=== PATIENT | male | born 1970 | race Caucasian/White ===

== ENCOUNTER 2016-09-18 17:19 | Emergency (ER) | payer OTHER ==
[~2016-09-18] VITALS: Ht 180.3 cm; Wt 101.2 kg
[~2016-09-18 17:19] MED LIST: HYDR-2678 PO; ONDA4TAB7 PO; TAMS0.4C97 PO
--- NOTE | 2016-09-18 17:32 | ED.ADGEN ---
Past History Past Medical History: Schizophrenia Past Surgical History: No Surgical History Smoking: Cigarettes Alcohol Use: None Drug Use: None, Marijuana Adult General Chief Complaint Chief Complaint The other day I was sitting on the couch .. smoking and got a real bad coughing spasm and I felt something tear mild left lower rib area,, it still hurts.. it has been two days.. now.. every time I cough it hurts or I move the wrong way it hurt... right here on the Lt.'.." HPI HPI Patient is a 45 year old male who presents with above hx and complaints of sharp clicking pain left lower rib cage mid axillary and mid clavicular line at approximately T7. Patient has point tenderness at this spot. Deep breaths and cough reproduce it. Palpation of site reproduces pain. Patient denies any other trauma. Patient does smoke tobacco and marijuana. Patient denies any immunosuppression. Patient does have a history of schizophrenia. Patient states injury occurred approximately 2 days ago. Patient denies any history of productive sputum, or fever. Patient has been told he has chronic bronchitis or COPD in the past. Patient denies immunosuppression, travel or specific ill contacts. Patient normally follows with Dr. Tijerina. Review of Systems Review of Systems Constitutional: Denies fever or chills [] Eyes: Denies change in visual acuity, redness, or eye pain [] HENT: Denies nasal congestion or sore throat [] Respiratory: History of nonproductive cough and left chest wall tenderness Cardiovascular: No additional information not addressed in HPI [] GI: Denies abdominal pain, nausea, vomiting, bloody stools or diarrhea [] : Denies dysuria or hematuria [] Musculoskeletal: Denies back pain or joint pain [] Integument: Denies rash or skin lesions [] Neurologic: Denies headache, focal weakness or sensory changes [] Endocrine: Denies polyuria or polydipsia [] Family History Family History Noncontributory Current Medications Current Medications Current Medications Medications (Trade) Dose Ordered Sig/Alexander Start Time Stop Time Status Last Admin Dose Admin Hydrocodone Bitartrate/ Ibuprofen (Vicoprofen 7.5-200) 2 tab 1X ONCE 09/18/16 18:00 09/18/16 18:02 DC 09/18/16 18:00 2 TAB Allergies Allergies Allergies Coded Allergies Type Severity Reaction Last Updated Verified No Known Drug Allergies 01/25/16 No Physical Exam Physical Exam Constitutional: Mild to moderate distress, non-toxic appearance. Red hair. HENT: Normocephalic, atraumatic, bilateral external ears normal, oropharynx moist, no oral exudates, nose normal. [] Eyes: PERRLA, EOMI, conjunctiva normal, no discharge. [] Neck: Normal range of motion, no tenderness, supple, no stridor. [] Cardiovascular:Heart rate regular rhythm, no murmur [] Lungs & Thorax: Bilateral breath sounds equal at apexes with scattered wheezes on auscultation [] point chest wall tenderness as per history of present illness Abdomen: Bowel sounds normal, soft, no tenderness, no masses, no pulsatile masses. [] Skin: Warm, dry, no erythema, no rash. [] Tattoos Back: No tenderness, no CVA tenderness. [] Extremities: No tenderness, no cyanosis, no clubbing, ROM intact, no edema. [] Neurologic: Alert and oriented X 3, normal motor function, normal sensory function, no focal deficits noted. [] Psychologic: Affect anxious, judgement normal, mood normal. [] Current Patient Data Vital Signs Vital Signs Date Time Temp Pulse Resp B/P Pulse Ox O2 Delivery O2 Flow Rate FiO2 09/18/16 18:25 97.9 81 18 140/71 97 Room Air EKG EKG [] Radiology/Procedures Radiology/Procedures I interpretation chest x-ray shows chronic patchy changes. No large infiltrate. No finding of pneumonia thorax. [] Course & Med Decision Making Course & Med Decision Making Pertinent Labs and Imaging studies reviewed. (See chart for details) Must stop smoking. Ice packs when necessary. Do not binding site. Tylenol and ibuprofen for pain. Follow-up primary care. Return if any concerns. [] Final Impression Final Impression 1. Cartilage Tear 2. Chest Pain- chest wall 3. Tobacco and MJ abuse. [] Problems: Dragon Disclaimer Dragon Disclaimer This electronic medical record was generated, in whole or in part, using a voice recognition dictation system. ANTHONY MESA MD Sep 18, 2016 17:32
[2016-09-18] MEDS ORDERED: HYDROCODON/IBUPROFEN 7.5/200MG TABLET. PO ONE (18:00)
[2016-09-18 18:25] VITALS: BP 140/71
--- NOTE | 2016-09-19 08:13 | RAD ---
Chest, 2 views, 09/18/2016: History: Chest pain The heart size is normal. The pulmonary vascularity is within normal limits. No pulmonary infiltrate is seen. There is no evidence of pleural fluid. IMPRESSION: No acute cardiopulmonary abnormality is detected.
== END 2016-09-18 18:30 | disposition home or self-care (01) ==
LOC: ER 17:19
DX: S23.41XA Sprain of ribs, initial encounter (principal); R07.89 Other chest pain; F17.210 Nicotine dependence, cigarettes, uncomplicated; F12.10 Cannabis abuse, uncomplicated; F20.9 Schizophrenia, unspecified; X58.XXXA Exposure to other specified factors, initial encounter; Y93.9 Activity, unspecified; Y99.8 Other external cause status; Y92.89 Other specified places as the place of occurrence of the external cause
CPT/HCPCS: 71020; 99284

== ENCOUNTER → 2017-11-14 | Outpatient (CLI) | payer OTHER | END | disposition home or self-care (01) | LOC: LAB 14:31 | PROVIDERS: ATTEND Physician Assistant | DX: Z51.81 Encounter for therapeutic drug level monitoring (principal); Z79.899 Other long term (current) drug therapy | CPT/HCPCS: 36415; 84146 ==

== ENCOUNTER → 2018-04-10 | Outpatient (CLI) | payer OTHER ==
[2018-04-10 13:48] LABS: BASO # 0.1 x10^3/uL (0.0-0.2); BASO % 1 % (0-3); EOS # 0.2 x10^3/uL (0.0-0.7); EOS % 2 % (0-3); HEMATOCRIT 46.3 % (39.0-53.0); HEMOGLOBIN 15.9 g/dL (13.0-17.5); LYMPH # 3.3 x10^3/uL (1.0-4.8); LYMPH % 35 % (24-48); MEAN CORPUSCULAR HEMOGLOBIN 30 pg (25-35); MEAN CORPUSCULAR HGB CONC 34 g/dL (31-37); MEAN CORPUSCULAR VOLUME 88 fL (79-100); MONO # 0.6 x10^3/uL (0.0-1.1); MONO % 7 % (0-9); NEUT # 5.2 x10^3uL (1.8-7.7); NEUT % 55 % (31-73); PLATELET COUNT 284 x10^3/uL (140-400); RED BLOOD COUNT 5.28 x10^6/uL (4.30-5.70); RED CELL DISTRIBUTION WIDTH 13.3 % (11.5-14.5); WHITE BLOOD COUNT 9.4 x10^3/uL (4.0-11.0)
[2018-04-10 13:56] LABS: ALBUMIN 3.5 g/dL (3.4-5.0); ALBUMIN/GLOBULIN RATIO 0.8 (1.0-1.7); ALK PHOS 72 U/L (46-116); ALT (SGPT) 43 U/L (16-63); ANION GAP 7 (6-14); AST (SGOT) 25 U/L (15-37); BLOOD UREA NITROGEN 11 mg/dL (8-26); BUN/CREATININE RATIO 12 (6-20); CALCIUM 8.7 mg/dL (8.5-10.1); CARBON DIOXIDE 28 mmol/L (21-32); CHLORIDE 102 mmol/L (98-107); CREATININE 0.9 mg/dL (0.7-1.3); GFR 90.1; GLUCOSE 90 mg/dL (70-99); POTASSIUM 4.1 mmol/L (3.5-5.1); SODIUM 137 mmol/L (136-145); TOTAL BILIRUBIN 0.5 mg/dL (0.2-1.0); VAL ACID 56 mcg/mL (50-100)
[2018-04-11 13:03] LABS: FREE T4 1.03 ng/dL (0.76-1.46); THYROID STIM HORMONE (TSH) 2.95 uIU/mL (0.358-3.740)
== END | disposition home or self-care (01) ==
LOC: LAB 12:43
PROVIDERS: ATTEND Physician Assistant
DX: Z79.899 Other long term (current) drug therapy (principal)
CPT/HCPCS: 36415; 80053; 80061; 80164; 84439; 84443; 84480; 85025

== ENCOUNTER 2018-12-24 07:08 | Emergency (ER) | payer OTHER ==
[~2018-12-24] VITALS: Ht 180.3 cm; Wt 111.1 kg
[2018-12-24] MEDS ORDERED: IV NORMAL SALINE 1,000ML 1,000 ML IV SCH (07:21)
[2018-12-24] MEDS ORDERED: KETOROLAC 30 MG/ML VIAL. ONE (07:31)
[2018-12-24] MEDS ORDERED: ORPHENADRINE CITRATE 60 MG/2 ML VIAL. ONE (07:32)
--- NOTE | 2018-12-24 07:41 | PHYS DOC ---
Past History Past Medical History: High Cholesterol, Kidney Stones, Schizophrenia Past Surgical History: No Surgical History Smoking: Cigarettes Alcohol Use: None Drug Use: None, Marijuana Adult General Chief Complaint Chief Complaint: FLANK PAIN HPI HPI Patient is a 48-year-old male who presents with complaint of right flank pain. He states that pain started yesterday. He rates pain as moderate and states that pain is worsened when he stands up and walks. He states that when he sits down and leans forward, pain is relieved. He denies any nausea or vomiting. He states that at times is like a deep ache but at times, especially when he takes in a deep breath, pain can be like a sharp stab.[] Review of Systems Review of Systems Constitutional: Denies fever or chills [] Respiratory: Denies cough or shortness of breath [] Cardiovascular: No additional information not addressed in HPI [] GI: Denies abdominal pain, nausea, vomiting or diarrhea [] : Denies dysuria or hematuria [] Musculoskeletal: Complains of right-sided lower back pain [] Integument: Denies rash or skin lesions [] All other systems were reviewed and found to be within normal limits, except as documented in this note. Current Medications Current Medications Current Medications Medications (Trade) Dose Ordered Sig/Alexander Start Time Stop Time Status Last Admin Dose Admin Ketorolac Tromethamine (Toradol 30mg Vial) 30 mg 1X ONCE 12/24/18 07:30 12/24/18 07:31 UNV Orphenadrine Citrate (Norflex) 60 mg 1X ONCE 12/24/18 07:30 12/24/18 07:31 UNV Sodium Chloride 1,000 ml @ 1,000 mls/hr Q1H 12/24/18 07:21 12/24/18 08:20 UNV Allergies Allergies Allergies Coded Allergies Type Severity Reaction Last Updated Verified No Known Drug Allergies 01/25/16 No Physical Exam Physical Exam Constitutional: Well developed, well nourished, no acute distress, non-toxic appearance. [] HENT: Normocephalic, atraumatic, bilateral external ears normal, oropharynx moist, no oral exudates, nose normal. [] Eyes: PERRLA, EOMI, conjunctiva normal, no discharge. [] Neck: Normal range of motion, no tenderness, supple, no stridor. [] Cardiovascular:Heart rate regular rhythm, no murmur [] Lungs & Thorax: Bilateral breath sounds clear to auscultation [] Abdomen: Bowel sounds normal, soft, no tenderness. [] Skin: Warm, dry, no erythema, no rash. [] Back: There is mild tenderness to palpation with palpable spasm in the lower thoracic and upper lumbar paraspinal musculature on the right. [] Extremities: No tenderness, no cyanosis, no clubbing, ROM intact. [] Neurologic: Awake and alert, no focal deficits noted. [] EKG EKG [] Radiology/Procedures Radiology/Procedures [] Impressions: PROCEDURE: CT ABDOMEN PELVIS WO CONTRAST Examination: CT ABDOMEN PELVIS WO CONTRAST History: Right flank pain with onset 2 days ago. Comparison/Correlation: 01/25/2016 CT abdomen and pelvis without contrast Findings: Axial images of the abdomen and pelvis were obtained without contrast. Visualized lung bases are clear. Marked, diffuse fatty infiltration of the liver is present. Gallbladder is somewhat high density of the dependent aspect of the abdomen expected of sludge. Spleen, pancreas, and adrenal glands are normal. Appendix is normal. No bowel obstruction. No inflammatory change about cecum. Right renal lower pole nonobstructive 0.3 cm diameter calyceal calculus is present left renal lower pole nonobstructive calyceal calculus measuring 0.75 cm diameter is present. No hydronephrosis. No right hydroureter. No radiopaque ureteral calculi. Slight distention of the distal left ureter is present and mildly decreased compared to the prior exam. No radiopaque calculus at this site however. There is a calculus within the urinary bladder measuring up to 0.77 cm diameter. Bladder is mostly decompressed which may account for the circumferential wall thickening present. No gross surrounding stranding. No acute bony process. Left inguinal hernia contains omental fat. No enlarged abdominal or pelvic lymph nodes. No ascites or pelvic free fluid. Prostate gland is mildly enlarged measuring up to 4.4 cm diameter transversely. Impression: Urinary bladder 0.77 cm diameter calculus is present. Nonobstructive left renal calculus. Nonobstructive right renal calculus. Appendix is normal. Marked fatty infiltration of the liver. Mild prostatomegaly. PQRS Compliance Statement: One or more of the following individualized dose reduction techniques were utilized for this examination: 1. Automated exposure control 2. Adjustment of the mA and/or kV according to patient size 3. Use of iterative reconstruction technique Electronically signed by: Nba Tobin MD (12/24/2018 7:57 AM) [facility] [place] & Med Decision Making Course & Med Decision Making Pertinent Labs and Imaging studies reviewed. (See chart for details) [] Dragon Disclaimer Dragon Disclaimer This electronic medical record was generated, in whole or in part, using a voice recognition dictation system. Departure Departure: Impression: Primary Impression: Muscle spasm of back Disposition: 01 HOME, SELF-CARE Condition: STABLE Referrals: MINE REBOLLEDO (PCP) Patient Instructions: Back Pain, Adult Scripts Diclofenac Sodium (DICLOFENAC SODIUM) 50 Mg Tablet.dr 1 TAB PO BID PRN for PAIN, #20 TAB Prov: PEDRO BRANDON Jr. DO 12/24/18 Orphenadrine Citrate (ORPHENADRINE CITRATE) 100 Mg Tablet.er 1 TAB PO BID PRN for MUSCLE SPASMS, #14 TAB Prov: PEDRO BRANDON Jr. DO 12/24/18 Hydrocodone Bit/Acetaminophen (HYDROCODONE-APAP 7.5-325 ) 1 Each Tablet 1 TAB PO PRN Q6HRS PRN for PAIN, #12 TAB 0 Refills Prov: PEDRO BRANDON Jr. DO 12/24/18 PEDRO BRANDON Jr. DO Dec 24, 2018 07:41
[2018-12-24 07:52] LABS: BASO # 0.1 x10^3/uL (0.0-0.2); BASO % 1 % (0-3); EOS # 0.1 x10^3/uL (0.0-0.7); EOS % 1 % (0-3); HEMATOCRIT 46.3 % (39.0-53.0); HEMOGLOBIN 15.6 g/dL (13.0-17.5); LYMPH # 3.1 x10^3/uL (1.0-4.8); LYMPH % 27 % (24-48); MEAN CORPUSCULAR HEMOGLOBIN 30 pg (25-35); MEAN CORPUSCULAR HGB CONC 34 g/dL (31-37); MEAN CORPUSCULAR VOLUME 89 fL (79-100); MONO # 0.8 x10^3/uL (0.0-1.1); MONO % 7 % (0-9); NEUT # 7.5 x10^3uL (1.8-7.7); NEUT % 65 % (31-73); PLATELET COUNT 338 x10^3/uL (140-400); RED BLOOD COUNT 5.19 x10^6/uL (4.30-5.70); RED CELL DISTRIBUTION WIDTH 13.2 % (11.5-14.5); WHITE BLOOD COUNT 11.5 x10^3/uL (4.0-11.0)
[2018-12-24] MEDS ORDERED: ORPHENADRINE CITRATE 60 MG/2 ML VIAL. IV ONE (08:00)
[2018-12-24] MEDS ORDERED: KETOROLAC 30 MG/ML VIAL. IV ONE (08:00)
--- NOTE | 2018-12-24 08:00 | RAD ---
Examination: CT ABDOMEN PELVIS WO CONTRAST History: Right flank pain with onset 2 days ago. Comparison/Correlation: 01/25/2016 CT abdomen and pelvis without contrast Findings: Axial images of the abdomen and pelvis were obtained without contrast. Visualized lung bases are clear. Marked, diffuse fatty infiltration of the liver is present. Gallbladder is somewhat high density of the dependent aspect of the abdomen expected of sludge. Spleen, pancreas, and adrenal glands are normal. Appendix is normal. No bowel obstruction. No inflammatory change about cecum. Right renal lower pole nonobstructive 0.3 cm diameter calyceal calculus is present left renal lower pole nonobstructive calyceal calculus measuring 0.75 cm diameter is present. No hydronephrosis. No right hydroureter. No radiopaque ureteral calculi. Slight distention of the distal left ureter is present and mildly decreased compared to the prior exam. No radiopaque calculus at this site however. There is a calculus within the urinary bladder measuring up to 0.77 cm diameter. Bladder is mostly decompressed which may account for the circumferential wall thickening present. No gross surrounding stranding. No acute bony process. Left inguinal hernia contains omental fat. No enlarged abdominal or pelvic lymph nodes. No ascites or pelvic free fluid. Prostate gland is mildly enlarged measuring up to 4.4 cm diameter transversely. Impression: Urinary bladder 0.77 cm diameter calculus is present. Nonobstructive left renal calculus. Nonobstructive right renal calculus. Appendix is normal. Marked fatty infiltration of the liver. Mild prostatomegaly. PQRS Compliance Statement: One or more of the following individualized dose reduction techniques were utilized for this examination: 1. Automated exposure control 2. Adjustment of the mA and/or kV according to patient size 3. Use of iterative reconstruction technique Electronically signed by: Nba Tobin MD (12/24/2018 7:57 AM) [facility]
[2018-12-24 08:06] LABS: ALBUMIN 4.1 g/dL (3.4-5.0); CALCIUM 9.1 mg/dL (8.5-10.1); CREATININE 1.2 mg/dL (0.7-1.3); GFR 64.4; POTASSIUM 3.6 mmol/L (3.5-5.1); TOTAL BILIRUBIN 0.5 mg/dL (0.2-1.0); TOTAL PROTEIN 8.3 g/dL (6.4-8.2)
[2018-12-24] MEDS ORDERED: HYDR-2765 PO (08:29)
[2018-12-24] MEDS ORDERED: ORPH-16 PO (08:29)
[2018-12-24] MEDS ORDERED: DICL50TA4 PO (08:29)
[2018-12-24 08:46] VITALS: BP 158/83
== END 2018-12-24 08:45 | disposition home or self-care (01) ==
LOC: ER 07:08
DX: M62.830 Muscle spasm of back (principal); M54.5 Low back pain; E78.00 Pure hypercholesterolemia, unspecified; F20.9 Schizophrenia, unspecified; F17.210 Nicotine dependence, cigarettes, uncomplicated; Z87.442 Personal history of urinary calculi
CPT/HCPCS: 36415; 74176; 80053; 83690; 85025; 96374; 96375; 99285; J1885; J2360; J7030

== ENCOUNTER → 2020-01-22 | Outpatient (CLI) | payer OTHER ==
[~2020-01-22] MED LIST changes: +DICL50TA4 PO; +HYDR-2765 PO; +ORPH-16 PO
[2020-01-22 11:01] LABS: BASO % 0 % (0-3); EOS # 0.3 x10^3/uL (0.0-0.7); EOS % 3 % (0-3); HEMATOCRIT 47.7 % (39.0-53.0); HEMOGLOBIN 16.3 g/dL (13.0-17.5); LYMPH % 32 % (24-48); MEAN CORPUSCULAR HEMOGLOBIN 30 pg (25-35); MEAN CORPUSCULAR HGB CONC 34 g/dL (31-37); MEAN CORPUSCULAR VOLUME 89 fL (79-100); MONO # 0.5 x10^3/uL (0.0-1.1); MONO % 5 % (0-9); NEUT # 5.7 x10^3uL (1.8-7.7); NEUT % 60 % (31-73); PLATELET COUNT 308 x10^3/uL (140-400); RED BLOOD COUNT 5.37 x10^6/uL (4.30-5.70); WHITE BLOOD COUNT 9.5 x10^3/uL (4.0-11.0)
[2020-01-22 11:16] LABS: CALCIUM 9.3 mg/dL (8.5-10.1); CREATININE 1.2 mg/dL (0.7-1.3); GFR 64.1; POTASSIUM 3.8 mmol/L (3.5-5.1); TOTAL BILIRUBIN 0.8 mg/dL (0.2-1.0); TOTAL PROTEIN 8.1 g/dL (6.4-8.2)
[2020-01-22 14:33] LABS: FREE T4 1.13 ng/dL (0.76-1.46); THYROID STIM HORMONE (TSH) 1.221 uIU/mL (0.358-3.740)
[2020-01-23 00:07] LABS: HEMOGLOBIN A1C 5.7 % (4.8-5.6)
== END | disposition home or self-care (01) ==
LOC: LAB 08:59
PROVIDERS: ATTEND Physician Assistant
DX: Z79.899 Other long term (current) drug therapy (principal)
CPT/HCPCS: 36415; 80053; 80061; 83036; 84439; 84443; 84480; 85025